=== PATIENT | female | born 1995 | race Asian ===

== ENCOUNTER 2020-01-17 07:00 | Inpatient (IN) | payer BC ==
[~2020-01-17] VITALS: Ht 162.6 cm; Wt 87.6 kg
[2020-01-17] MEDS ORDERED: SODIUM CHLORIDE 0.9% 1000ML BAG (SEPSIS BOLUS) IV ONE (07:15)
[2020-01-17] MEDS ORDERED: SODIUM CHLORIDE 0.9% 1,000 ML IV ONE ×2 (07:24→07:47)
[2020-01-17 07:28] LABS: BASOPHILS % 0.8 % (0.0-2.0); EOSINOPHILS % 0.1 % (0.0-5.0); HEMATOCRIT. 47.1 % (36.0-48.0); HEMOGLOBIN. 15.3 g/dL (12.0-16.0); LYMPHOCYTES % 13.2 % (20.0-50.0); MEAN CORPUSCULAR HEMOGLOBIN 29.1 pg (28.0-32.0); MEAN CORPUSCULAR VOLUME 89.8 fL (81.0-99.0); MEAN PLATELET VOLUME 8.3 fl (7.4-10.4); MONOCYTES % 3.9 % (2.0-8.0); PLATELET 476 x1000/uL (130-400); RED BLOOD CELL COUNT 5.24 mill/uL (4.2-5.4); RED CELL DISTRIBUTION WIDTH 14.1 % (11.6-14.6)
[2020-01-17] MEDS ORDERED: ONDANSETRON HCL 4MG/2ML INJ IV ONE (07:30)
[2020-01-17 07:32] LABS: CHLORIDE 90 mEq/L (98-107)
[2020-01-17 07:33] LABS: INR 0.9; PROTHROMBIN TIME 10.1 sec (9.6-11.0)
[2020-01-17 07:39] LABS: BETA HYDROXYBUTYRATE 8.1 mMol/L (0.0-0.3)
[2020-01-17 08:12] LABS: CLARITY URINE CLEAR (CLEAR); KETONES URINE 4+ (NEGATIVE); LEUKOCYTE ESTERASE URINE NEGATIVE (NEGATIVE); NITRITE URINE NEGATIVE (NEGATIVE); OCCULT BLOOD URINE NEGATIVE (NEGATIVE); PH URINE 5.5 (4.5-8.0); PROTEIN URINE 1+ (NEGATIVE); SPECIFIC GRAVITY URINE 1.026 (1.005-1.030); UROBILINOGEN URINE 0.2 E.U./dL (0.2-1.0)
[2020-01-17 08:14] LABS: COLOR URINE PALE YELLOW (YELLOW)
[2020-01-17] MEDS ORDERED: INSULIN REGULAR (DRIP) 100 UNITS in SODIUM CHLORIDE 0.9% 99 ML IV ONE (08:15)
[2020-01-17] MEDS ORDERED: INSULIN REGULAR (DRIP) 100 UNITS in SODIUM CHLORIDE 0.9% 99 ML IV SCH (08:15)
[2020-01-17 08:30] LABS: PHOSPHORUS 4.9 mg/dL (2.5-4.9)
[2020-01-17] MEDS ORDERED: SODIUM CHLORIDE 0.9% 1,000 ML IV SCH (09:15)
[2020-01-17 10:35] LABS: BG BASE EXCESS -24.4 mmol/L (-2.0-2.0); BG CARBOXYHEMOGLOBIN 0.1 % (0.5-1.5); BG DEOXYHEMOGLOBIN 2.4 % (0.0-5.0); BG FRACTION INSPIRED OXYGEN 21; BG HCO3 ACT 3.6 mmol/L (22.0-26.0); BG METHEMOGLOBIN 0.3 % (0.0-1.5); BG OXYGEN SATURATION 97.6 % (92.0-98.5); BG OXYHEMOGLOBIN 97.2 % (94.0-97.0); BG PCO2 12.7 mmHg (35.0-45.0); BG PH 7.067 (7.350-7.450); BG PO2 132.5 mmHg (75.0-100.0); BG SAMPLE SITE RIGHT RADIAL; BG TOTAL HEMOGLOBIN 14.9 g/dL (12.0-18.0); BG VENT MODE ROOM AIR
[2020-01-17 13:10] LABS: CHLORIDE 106 mEq/L (98-107)
[2020-01-17] MEDS ORDERED: DEXT 5%/0.45% NACL 1000ML 1,000 ML IV ONE (13:30)
[2020-01-17 16:37] LABS: CHLORIDE 107 mEq/L (98-107)
[2020-01-17] MEDS: ENOXAPARIN 40MG/0.4ML SYR SUBCUT SCH (16:52)
[2020-01-17 20:39] LABS: CHLORIDE 108 mEq/L (98-107)
[2020-01-18 01:14] LABS: CHLORIDE 109 mEq/L (98-107)
[2020-01-18 04:58] LABS: BASOPHILS % 0.7 % (0.0-2.0); EOSINOPHILS % 0.6 % (0.0-5.0); HEMATOCRIT. 39.6 % (36.0-48.0); HEMOGLOBIN. 13.2 g/dL (12.0-16.0); MEAN CORPUSCULAR HEMOGLOBIN 28.8 pg (28.0-32.0); MEAN CORPUSCULAR VOLUME 86.3 fL (81.0-99.0); MEAN PLATELET VOLUME 7.5 fl (7.4-10.4); MONOCYTES % 6.8 % (2.0-8.0); NEUTROPHILS % 67.9 % (40.0-76.0); PLATELET 364 x1000/uL (130-400); RED BLOOD CELL COUNT 4.59 mill/uL (4.2-5.4); RED CELL DISTRIBUTION WIDTH 13.4 % (11.6-14.6)
[2020-01-18 05:05] LABS: CHLORIDE 108 mEq/L (98-107)
[2020-01-18 05:10] LABS: PHOSPHORUS 2.4 mg/dL (2.5-4.9)
[2020-01-18] MEDS ORDERED: INSULIN REGULAR (DRIP) 100 UNITS in SODIUM CHLORIDE 0.9% 99 ML IV SCH (06:30)
[2020-01-18] MEDS ORDERED: DEXT 5%/0.45% NACL 1000ML 1,000 ML IV SCH (07:30)
[2020-01-18 08:34] LABS: CHLORIDE 108 mEq/L (98-107)
[2020-01-18] MEDS ORDERED: POTASSIUM CHLORIDE 20MEQ TABLET SR PO ONE ×2 (09:00→13:00)
[2020-01-18] MEDS: ENOXAPARIN 40MG/0.4ML SYR SUBCUT SCH (10:00)
[2020-01-18 12:30] LABS: CHLORIDE 108 mEq/L (98-107)
[2020-01-18] MEDS ORDERED: DEXTROSE 50% WATER 50ML SYRINGE IV PRN (13:00)
[2020-01-18] MEDS: INSULIN LISPRO 100 UNITS/ML SUBCUT SCH ×4 (13:20→20:59)
[2020-01-18] MEDS: BLOOD SUGAR DIAGNOSTIC STRIP TEST SCH ×3 (13:42→20:32)
[2020-01-18 16:00] VITALS: BP 114/57
[2020-01-18 16:55] VITALS: BP 114/57
[2020-01-18] MEDS ORDERED: INSULIN GLARGINE UD 100 UNITS/ML SYR SUBCUT NR (18:04)
[2020-01-18] MEDS ORDERED: ONDANSETRON HCL 4MG TABLET PO PRN (18:15)
[2020-01-18] MEDS ORDERED: ACETAMINOPHEN 325MG TABLET PO PRN (18:15)
[2020-01-18 18:22] LABS: CHLORIDE 102 mEq/L (98-107)
[2020-01-18 20:00] VITALS: BP 113/71
[2020-01-18 20:41] LABS: CHLORIDE 106 mEq/L (98-107)
[2020-01-18] MEDS ORDERED: INSULIN GLARGINE UD 100 UNITS/ML SYR SUBCUT SCH ×2 (22:00)
[2020-01-19] VITALS: BP 103/61
[2020-01-19 04:00] VITALS: BP 100/47
[2020-01-19] MEDS: BLOOD SUGAR DIAGNOSTIC STRIP TEST SCH ×4 (06:31→21:08)
[2020-01-19] MEDS: INSULIN LISPRO 100 UNITS/ML SUBCUT SCH ×4 (06:31→21:47)
[2020-01-19 08:00] VITALS: BP 131/72
[2020-01-19] MEDS: ENOXAPARIN 40MG/0.4ML SYR SUBCUT SCH (09:05)
[2020-01-19] MEDS: PANTOPRAZOLE SODIUM 40 MG/VIAL IV SCH (09:05)
[2020-01-19] MEDS ORDERED: DEXT 5%/0.45% NACL 1000ML 1,000 ML IV SCH (09:30)
[2020-01-19] MEDS ORDERED: INSULIN GLARGINE UD 100 UNITS/ML SYR SUBCUT SCH (10:00)
[2020-01-19] MEDS ORDERED: INSULIN GLARGINE UD 100 UNITS/ML SYR SUBCUT NR ×2 (11:30→22:00)
[2020-01-19 12:00] VITALS: BP 111/59
[2020-01-19] MEDS ORDERED: DEXTROSE 50% WATER 50ML SYRINGE IV PRN (12:15)
[2020-01-19] MEDS ORDERED: BLOOD SUGAR DIAGNOSTIC STRIP TEST SCH ×2 (12:20)
[2020-01-19] MEDS ORDERED: INSULIN LISPRO 100 UNITS/ML SUBCUT SCH (12:50)
[2020-01-19] MEDS: SODIUM CHLORIDE 0.9% 1,000 ML IV SCH (15:52)
[2020-01-19 16:00] VITALS: BP 108/66
[2020-01-19 16:16] LABS: CHLORIDE 106 mEq/L (98-107)
[2020-01-19 20:00] VITALS: BP 106/66
[2020-01-19 21:33] LABS: CHLORIDE 108 mEq/L (98-107)
[2020-01-20] VITALS: BP 101/55
[2020-01-20 01:24] LABS: CHLORIDE 107 mEq/L (98-107)
[2020-01-20] MEDS: SODIUM CHLORIDE 0.9% 1,000 ML IV SCH ×2 (02:50→08:48)
[2020-01-20 04:00] VITALS: BP 109/67
[2020-01-20 06:52] LABS: CHLORIDE 107 mEq/L (98-107)
[2020-01-20] MEDS: BLOOD SUGAR DIAGNOSTIC STRIP TEST SCH ×2 (07:47→11:36)
[2020-01-20 08:00] VITALS: BP 102/63
[2020-01-20] MEDS: PANTOPRAZOLE SODIUM 40 MG/VIAL IV SCH (08:48)
[2020-01-20] MEDS: ENOXAPARIN 40MG/0.4ML SYR SUBCUT SCH (08:48)
[2020-01-20] MEDS: INSULIN LISPRO 100 UNITS/ML SUBCUT SCH ×2 (09:26→12:17)
[2020-01-20 09:30] LABS: CHLORIDE 107 mEq/L (98-107)
[2020-01-20] MEDS ORDERED: INSULIN GLARGINE UD 100 UNITS/ML SYR SUBCUT NR (11:00)
[2020-01-20 12:00] VITALS: BP 103/62
[2020-01-20 13:07] VITALS: BP 103/62
== END 2020-01-20 13:17 | disposition home or self-care (01) | DRG 638 ==
LOC: ER 07:27 → EDBEDREQ 07:37 → 6EST 08:43 → EDBEDREQSVC 08:49 → EDBEDREQ 08:49 → EDBEDREQTM 08:49 → EDBEDREQSVC 01-18 13:50 → ENRESERV 01-18 14:10
PROVIDERS: ADMIT Internal Medicine; ATTEND Internal Medicine
DX: E10.10 Type 1 diabetes mellitus with ketoacidosis without coma (principal); E87.1 Hypo-osmolality and hyponatremia; E87.8 Other disorders of electrolyte and fluid balance, not elsewhere classified; D72.829 Elevated white blood cell count, unspecified; Z79.4 Long term (current) use of insulin; Z79.899 Other long term (current) drug therapy
CPT/HCPCS: 36415; 36600; 71045; 80048; 80053; 81003; 82010; 82375; 82805; 82962; 83036; 83605; 83735; 84100; 84145; 85025; 93005; 99291; C9113; J1650; J1815; J2405; J7030; J7050; Q0162